=== PATIENT | male | born 1995 ===

== ENCOUNTER 2017-12-23 13:55 | Emergency (ER) | payer OTHER ==
[~2017-12-23] VITALS: Ht 170.2 cm; Wt 104.3 kg
[2017-12-23] MEDS ORDERED: [UNRECOGNIZED DRUG - REMARK] (14:46)
[2017-12-26] MEDS ORDERED: Amoxicillin500 MG PO (08:01)
== END 2017-12-23 15:10 | disposition home or self-care (01) ==
LOC: ER 13:55
DX: J02.9 Acute pharyngitis, unspecified (principal)
CPT/HCPCS: 87081; 87147; 87430; 99283; J1100